=== PATIENT | female | born 1965 | race Caucasian/White ===

== ENCOUNTER 2019-10-07 13:40 | Emergency (ER) | payer OTHER ==
[2019-10-07 13:49] VITALS: BP 116/70; PULSE 89; TEMP 98.3; BMI 31.8
--- NOTE | 2019-10-07 13:49 | PDOC ---
Rapid Medical Evaluation Chief Complaint: Pain, Acute Time Seen by Provider: 10/07/19 13:48 Medical Evaluation: 10/07/19 13:48 I have performed a brief in-person evaluation of this patient. The patient presents with a chief complaint of:LUE/neck pain. Has h/o cervical disc herniation Pertinent physical exam findings:stable I have ordered the following:nothing The patient will proceed to the ED for further evaluation. Discharge Disposition - Diagnosis Neck pain - Referrals Referrals: Megan Silverio DO [Primary Care Provider] - - Patient Instructions - Post Discharge Activity
[2019-10-07] MEDS ORDERED: KETOROLAC TROMETHAMINE 60 MG/2 ML VIAL IM ONE (13:55)
[2019-10-07] MEDS ORDERED: KETOROLAC TROMETHAMINE 60 MG/2 ML VIAL ONE (13:56)
--- NOTE | 2019-10-07 14:06 | PDOC ---
History of Present Illness - General Chief Complaint: Pain, Acute Stated Complaint: Head/Neck problem Time Seen by Provider: 10/07/19 13:48 - History of Present Illness Initial Comments: 10/07/19 14:04 54-year-old female with a past medical history of fibromyalgia on Neurontin and Naprosyn which she did not take today presents for evaluation of exacerbation of symptoms without any precipitating traumatic event. Past History - Medical History Allergies/Adverse Reactions: Allergies Allergy/AdvReac Type Severity Reaction Status Date / Time No Known Allergies Allergy Verified 10/07/19 13:48 COPD: No Other medical history: bulding discs neck, fybromyalgia - Psycho-Social/Smoking History Smoking History: Never smoked Information on smoking cessation initiated: Yes - Substance Abuse Hx (Audit-C & DAST Scrn) How often the patient has a drink containing alcohol: Never Score: In Men: 4 or > Positive; In Women: 3 or > Positive: 0 Screen Result (Pos requires Nsg. Audit-10AR): Negative In the last yr the pt used illegal drug/Rx for NonMed reason: No Score: Yes response is considered Positive: 0 Screen Result (Positive result requires Nsg. DAST-10): Negative Review of Systems - Review of Systems Constitutional: No: Fever Musculoskeletal: Yes: Muscle Pain *Physical Exam - Vital Signs Last Vital Signs Temp Pulse Resp BP Pulse Ox 98.3 F 89 19 116/70 98 10/07/19 13:45 10/07/19 13:45 10/07/19 13:45 10/07/19 13:45 10/07/19 13:45 - Physical Exam 10/07/19 14:04 Cervical spine skin color and temperature normal range of motion is slightly limited. Diffuse tenderness about the cervical musculature out of proportion to the examination.. 5 out of 5 strength bilateral upper extremities without gross sensorimotor deficits neurovascular intact. ED Treatment Course - Medications Given in the ED: ED Medications Discontinued Medications Generic Name Dose Route Start Last Admin Trade Name Freq PRN Reason Stop Dose Admin Ketorolac Tromethamine 60 mg 10/07/19 13:55 10/07/19 13:56 Toradol Injection - IM 10/07/19 13:56 60 mg ONCE ONE Administration Medical Decision Making - Medical Decision Making 10/07/19 14:05 We will treat with Toradol and follow-up with her pain management doctor no emergent intervention necessary at this time. I have reviewed the pathophysiology with the patient. They are in agreement with the treatment plan all questions were answered to their satisfaction. Understanding for follow-up without fail was also conveyed to the patient. Again they are in agreement. Discharge - Discharge Information Problems reviewed: Yes Clinical Impression/Diagnosis: Neck pain Condition: Stable Disposition: HOME - Admission No - Follow up/Referral Referrals: Megan Silverio DO [Primary Care Provider] - - Patient Discharge Instructions Additional Instructions: Continue your regular medications. Do not take any Naprosyn today. You were given a shot of a long-acting anti-inflammatory in the emergency room called Toradol. Without fail follow-up with your pain management doctor in 1 to 2 days for further evaluation and treatment options. - Post Discharge Activity
== END 2019-10-07 14:21 | disposition home or self-care (01) ==
LOC: JERFT 13:40
PROC: 3E0233Z Introduction of Anti-inflammatory into Muscle, Percutaneous Approach (ICD-10-PCS; principal; 2019-10-07)
DX: M54.2 Cervicalgia (principal)
CPT/HCPCS: 99284-25